=== PATIENT | male | born 1970 | race Caucasian/White ===

== ENCOUNTER 2020-02-15 07:18 | Emergency (ER) | payer SELFPAY ==
[2020-02-15 08:11] LABS: Absolute Lymphocytes (CBC) 1.9 K/uL (0.7-4.9); Basophils % 0.9 % (0-1.3); Hematocrit 44.8 % (39.6-49.0); MPV 7.8 fL (7.6-11.3); RBC Red Blood Cell Count 5.03 M/uL (4.33-5.43)
--- NOTE | 2020-02-15 08:12 | EDPHYS ---
Physician Documentation [facility] Name: Reji Mendoza Age: 49 yrs Sex: Male : 1970 Arrival Date: 02/15/2020 Time: 07:19 Bed 6 Private MD: Reyna Cash ED Physician Neal Miranda HPI: 02/14 07:53 This 49 yrs old Male presents to ER via Ambulatory with complaints of jeancarlos Numbness Of Arm, tingling of L leg. 07:53 The patient or guardian complains of decreased range of motion. jeancarlos 07:54 The patient's problem is reported as paresthesias, in left upper extremity, in left jeancarlos lower extremity, weakness, in the left upper extremity, in the left lower extremity. Onset: The symptoms/episode began/occurred 6.5 hour(s) ago. Duration: The episode is continuous. Context: the episode(s) was witnessed, by family. The symptoms are alleviated by nothing. The symptoms are aggravated by nothing. Associated signs and symptoms: The patient has no apparent associated signs or symptoms. Severity of symptoms: At their worst the symptoms were moderate in the emergency department the symptoms are unchanged. Patient's baseline: Neuro: alert and fully oriented. Historical: - Allergies: 07:48 PENICILLINS; hb 07:48 Bees; hb - Home Meds: 07:48 None [Active]; hb - PMHx: 07:48 None; hb - PSHx: 07:48 None; hb - Immunization history:: Adult Immunizations up to date. - Social history:: Smoking status: Patient reports the use of cigarette tobacco products, smokes one pack cigarettes per day. ROS: 07:56 Constitutional: Negative for fever, chills, and weight loss, Eyes: Negative for injury, jeancarlos pain, redness, and discharge, ENT: Negative for injury, pain, and discharge, Neck: Negative for injury, pain, and swelling, Cardiovascular: Negative for chest pain, palpitations, and edema, Respiratory: Negative for shortness of breath, cough, wheezing, and pleuritic chest pain, Abdomen/GI: Negative for abdominal pain, nausea, vomiting, diarrhea, and constipation, Back: Negative for injury and pain, : Negative for injury, bleeding, discharge, and swelling, Skin: Negative for injury, rash, and discoloration, Psych: Negative for depression, anxiety, suicide ideation, homicidal ideation, and hallucinations, Allergy/Immunology: Negative for hives, rash, and allergies, Endocrine: Negative for neck swelling, polydipsia, polyuria, polyphagia, and marked weight changes, Hematologic/Lymphatic: Negative for swollen nodes, abnormal bleeding, and unusual bruising. 07:56 MS/extremity: Positive for decreased range of motion, paresthesias, of the left arm and left leg. Exam: 07:56 Radiologist reports: neil arshad 07:56 Constitutional: This is a well developed, well nourished patient who is awake, alert, and in no acute distress. Head/Face: Normocephalic, atraumatic. Eyes: Pupils equal round and reactive to light, extra-ocular motions intact. Lids and lashes normal. Conjunctiva and sclera are non-icteric and not injected. Cornea within normal limits. Periorbital areas with no swelling, redness, or edema. ENT: Nares patent. No nasal discharge, no septal abnormalities noted. Tympanic membranes are normal and external auditory canals are clear. Oropharynx with no redness, swelling, or masses, exudates, or evidence of obstruction, uvula midline. Mucous membranes moist. Neck: Trachea midline, no thyromegaly or masses palpated, and no cervical lymphadenopathy. Supple, full range of motion without nuchal rigidity, or vertebral point tenderness. No Meningismus. Chest/axilla: Normal chest wall appearance and motion. Nontender with no deformity. No lesions are appreciated. Cardiovascular: Regular rate and rhythm with a normal S1 and S2. No gallops, murmurs, or rubs. Normal PMI, no JVD. No pulse deficits. Respiratory: Lungs have equal breath sounds bilaterally, clear to auscultation and percussion. No rales, rhonchi or wheezes noted. No increased work of breathing, no retractions or nasal flaring. Abdomen/GI: Soft, non-tender, with normal bowel sounds. No distension or tympany. No guarding or rebound. No evidence of tenderness throughout. Back: No spinal tenderness. No costovertebral tenderness. Full range of motion. Male : Normal genitalia with no discharge or lesions. Skin: Warm, dry with normal turgor. Normal color with no rashes, no lesions, and no evidence of cellulitis. Psych: Awake, alert, with orientation to person, place and time. Behavior, mood, and affect are within normal limits. 07:56 Musculoskeletal/extremity: Extremities: noted in the left arm and left leg: decreased ROM, ROM: limited active range of motion, in the left arm and left leg, Circulation is intact in all extremities. Pulses: noted to be 4+ in the bilateral radial, brachial, femoral, popliteal, posterior tibial and and dorsalis pedis arteries., Sensation intact. Compartment Syndrome exam of affected extremity: is normal. DVT Exam: No signs of deep vein thrombosis. no pain, no swelling, no tenderness, negative Homans' sign noted on exam, no appreciated bluish discoloration, no erythema, no increased warmth. 08:52 ECG was reviewed by the Attending Physician. [facility] Vital Signs: 07:27 BP 157 / 90; Pulse 88; Resp 16; Temp 97.8; Pulse Ox 99% ; Weight 80.74 kg; Height 5 ft. hb 11 in. (180.34 cm); Pain 0/10; 08:00 BP 140 / 88; Pulse 59; Resp 16 S; Pulse Ox 98% on R/A; jl7 08:30 BP 136 / 88; Pulse 57; Resp 16; Pulse Ox 100% ; 7 09:00 BP 134 / 87; Pulse 54; Resp 16; Pulse Ox 100% ; jl7 09:35 BP 139 / 94; Pulse 60; Resp 17; Pulse Ox 100% ; 7 10:00 BP 130 / 85; Pulse 56; Resp 16; Pulse Ox 100% ; 7 07:27 Body Mass Index 24.83 (80.74 kg, 180.34 cm) NIH Stroke Scale Scores: 08:00 NIHSS Score: 11 jl7 08:07 NIHSS Score: 6 jeancarlos MDM: 07:26 Patient medically screened. [facility] 07:59 Data reviewed: vital signs, nurses notes, lab test result(s), EKG, radiologic studies, [facility] CT scan, plain films. 08:03 Differential diagnosis: CVA, TIA, paralysis. 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 Test interpretation: by ED physician or midlevel provider: ECG, plain radiologic studies. Counseling: I had a detailed discussion with the patient and/or guardian regarding: the historical points, exam findings, and any diagnostic results supporting the discharge/admit diagnosis, lab results, radiology results, the need to transfer to another facility, for higher level of care, [facility] does not immediately have the required specialist, no mri. ED course: dr church at [facility]. 08:52 Response to treatment: the patient's symptoms have markedly improved after treatment. [facility] 02/14 07:40 Order name: Basic Metabolic Panel [facility] 02/14 07:40 Order name: CBC with Diff [facility] 02/14 07:40 Order name: LFT's [facility] 02/14 07:40 Order name: Magnesium [facility] 02/14 07:40 Order name: NT PRO-BNP [facility] 02/14 07:40 Order name: PT-INR [facility] 02/14 07:40 Order name: CT Stroke Brain w/o Contrast [facility] 02/14 07:40 Order name: Troponin (emerg Dept Use Only) [facility] 02/14 07:40 Order name: XRAY Chest (1 view) [facility] 02/14 07:40 Order name: Sed Rate [facility] 02/14 07:40 Order name: CRP [facility] 02/14 07:52 Order name: CT Head Angio [facility] 02/14 07:55 Order name: Neck Angio EDUT 02/14 10:10 Order name: Urine Dipstick--Ancillary (enter results) tt3 02/14 07:40 Order name: EKG; Complete Time: 07:42 [facility] 02/14 07:40 Order name: Cardiac monitoring; Complete Time: 08:54 [facility] 02/14 07:40 Order name: EKG - Nurse/Tech; Complete Time: 08:54 [facility] 02/14 07:40 Order name: IV Saline Lock; Complete Time: 08:04 [facility] 02/14 07:40 Order name: Labs collected and sent; Complete Time: 08:04 [facility] 02/14 07:40 Order name: O2 Per Protocol; Complete Time: 08:04 [facility] 02/14 07:40 Order name: O2 Sat Monitoring; Complete Time: 08:04 [facility] EC:52 Rate is 58 beats/min. Rhythm is regular. QRS [place] is Normal. SD interval is normal. QRS jeancarlos interval is normal. QT interval is normal. No Q waves. T waves are Normal. No ST changes noted. Clinical impression: Sinus bradycardia. Interpreted by me. Reviewed by me. Administered Medications: 08:12 Drug: foLIC Acid 1 mg Route: IVPB; Site: right antecubital; jl7 08:13 Follow up: Response: No adverse reaction; IV Status: Completed infusion 08:13 Drug: Aspirin Chewable Tablet 324 mg Route: PO; 09:37 Follow up: Response: No adverse reaction 08:45 Drug: NS 0.9% 1000 ml Route: IV; Rate: 1 bolus; Site: right forearm; 09:38 Follow up: Response: No adverse reaction; IV Status: Completed infusion; IV Intake: jl7 1000ml Point of Care Testing: Blood Glucose: 07:42 Blood Glucose: 104 mg/dL; hb Ranges: Critical Glucose Levels:Adult <50 mg/dl or >400 mg/dl <40 mg/dl or >180 mg/dl Disposition: 02/15/20 08:11 Transfer ordered to [facility]. Diagnosis is Cerebral infarction - left arm and leg weakness. - Reason for transfer: Higher level of care. - Accepting physician is to dr ranjit salinas. - Condition is Fair. - Problem is new. - Symptoms have improved. NIH Stroke Scale - NIH Stroke Score Date: 02/15/2020 Time: 08:00 Total Score = 11 1a. Level of Consciousness (LOC) - 0(Alert) 1b. Level of Consciousness (LOC) (Year \T\ Age) - 0(Both) 1c. LOC Commands (Open \T\ Closes Eyes/Receiving Specialist) - 0(Both) 2. Best Gaze (Lateral Gaze Paresis) - 0(Normal) 3. Visual Field Loss - 0(No visual loss) 4. Facial Palsy - 0(Normal) 5a. Left Arm: Motor (10-second hold) - 4(No movement) 5b. Right Arm: Motor (10-second hold) - 0(No drift) 6a. Left Leg: Motor (5-second hold - always test supine) - 4(No movement) 6b. Right Leg: Motor (5-second hold - always test supine) - 0(No drift) 7. Limb Ataxia (finger/nose \T\ heel/wright - test with eyes open) - 2(Present in two limbs) 8. Sensory Loss (pinprick arms/legs/face) - 1(Mild to moderate loss) 9. Best Language: Aphasia (description/naming/reading) - 0(No aphasia) 10. Dysarthria (speech clarity - read or repeat words) - 0(Normal) 11. Extinction and Inattention (visual/tactile/auditory/spatial/personal) - 0(No abnormality) Initials: gasper NIH Stroke Scale - NIH Stroke Score Date: 02/15/2020 Time: 08:07 Total Score = 6 1a. Level of Consciousness (LOC) - 0(Alert) 1b. Level of Consciousness (LOC) (Year \T\ Age) - 0(Both) 1c. LOC Commands (Open \T\ Closes Eyes/Receiving Specialist) - 0(Both) 2. Best Gaze (Lateral Gaze Paresis) - 0(Normal) 3. Visual Field Loss - 0(No visual loss) 4. Facial Palsy - 0(Normal) 5a. Left Arm: Motor (10-second hold) - 2(Drift, some effort against gravity) 5b. Right Arm: Motor (10-second hold) - 0(No drift) 6a. Left Leg: Motor (5-second hold - always test supine) - 2(Drift, some effort against gravity) 6b. Right Leg: Motor (5-second hold - always test supine) - 0(No drift) 7. Limb Ataxia (finger/nose \T\ heel/wright - test with eyes open) - 2(Present in two limbs) 8. Sensory Loss (pinprick arms/legs/face) - 0(Normal) 9. Best Language: Aphasia (description/naming/reading) - 0(No aphasia) 10. Dysarthria (speech clarity - read or repeat words) - 0(Normal) 11. Extinction and Inattention (visual/tactile/auditory/spatial/personal) - 0(No abnormality) Initials: jeancarlos Signatures: Dispatcher [employer] EDNeal Light MD MD cha Baxter, Heather, RN RN Sina Cruz RN RN jl7 Jung Mendoza 3 Corrections: (The following items were deleted from the chart) 10:36 08:11 02/15/2020 08:11 Transfer ordered to [facility]. Diagnosis is Cerebral infarction - left arm and leg weakness. Reason for transfer: Higher level of care. Accepting physician is to dr ranjit salinas. Condition is Fair. Problem is new. Symptoms have improved. jeancarlos
--- NOTE | 2020-02-15 08:12 | ER ---
Nurse's Notes [facility] Name: Reji Mendoza Age: 49 yrs Sex: Male : 1970 Arrival Date: 02/15/2020 Time: 07:19 Bed 6 Private MD: Reyna Cash Diagnosis: Cerebral infarction-left arm and leg weakness Presentation: 02/14 07:27 Chief complaint: Left arm and leg numbness and tingling that started at 0130 today. hb 07:27 Coronavirus screen: Proceed with normal triage. Ebola Screen: No symptoms or risks hb identified at this time. Initial Sepsis Screen: Does the patient meet any 2 criteria? No. Patient's initial sepsis screen is negative. Does the patient have a suspected source of infection? No. Patient's initial sepsis screen is negative. Risk Assessment: Do you want to hurt yourself or someone else? Patient reports no desire to harm self or others. Onset of symptoms was February 15, 2020 at 01:30. 07:27 Method Of Arrival: Ambulatory hb 07:27 Acuity: BRIAN 2 hb Historical: - Allergies: 07:48 PENICILLINS; hb 07:48 Bees; hb - Home Meds: 07:48 None [Active]; hb - PMHx: 07:48 None; hb - PSHx: 07:48 None; hb - Immunization history:: Adult Immunizations up to date. - Social history:: Smoking status: Patient reports the use of cigarette tobacco products, smokes one pack cigarettes per day. Screenin:00 The patient has not been NPO before screening. The patient is currently on the jl7 following diet: Regular The patient is alert, able to follow commands. The patient does not exhibit slurred or garbled speech The patient is not exhibiting difficulty speaking. The patient does not exhibit difficulty understanding words. The patient is able to swallow own secretions with no drooling or need for suction. Patient tolerated one teaspoon of water. No drooling, immediate coughing, gurgling, or clearing of the throat was noted. The patient tolerated 90mL of water. No drooling, immediate coughing, gurgling, or clearing of the throat was noted. The patient passed the bedside swallow screening. Oral medications may be given as ordered. Contact Physician for further diet orders. Provider notified of bedside swallow screening results: Neal Ruben MD. 08:02 Abuse screen: Denies threats or abuse. Denies injuries from another. Nutritional jl7 screening: No deficits noted. Tuberculosis screening: No symptoms or risk factors identified. Fall Risk No fall in past 12 months (0 pts). No secondary diagnosis (0 pts). IV access (20 points). Ambulatory Aid- None/Bed Rest/Nurse Assist (0 pts). Gait- Weak (10 pts.). Mental Status- Oriented to own ability (0 pts). Total Barrera Fall Scale indicates Low Risk Score (25-44 pts). Fall prevention measures have been instituted. Side Rails Up X 2 Placed close to Nursing Station Frequent Obs/Assesments occuring As available Patient and Family Educated on Fall Prevention Program and strategies. Assessment: 07:27 Reassessment: CODE STROKE CALLED, PT TO CT VIA WHEELCHAIR. hb 07:35 General: Appears in no apparent distress. uncomfortable, Behavior is cooperative, jl7 anxious, crying. Pain: Denies pain. Neuro: Level of Consciousness is awake, alert, obeys commands, Oriented to person, place, time, situation, Property Adjuster are weak on left Weakness in left leg(s) Speech is normal, Facial symmetry appears normal. Cardiovascular: Patient's skin is warm and dry. Respiratory: Airway is patent Respiratory effort is even, unlabored, Respiratory pattern is regular, symmetrical. Derm: Skin is pink, warm \T\ dry. 08:45 Reassessment: Patient appears in no apparent distress at this time. Patient and/or jl7 family updated on plan of care and expected duration. Pain level reassessed. Patient is alert, oriented x 3, equal unlabored respirations, skin warm/dry/pink. pt able to move left hand and left leg, ERP notified Patient states symptoms have improved. 10:15 Reassessment: [facility] at bedside to transport pt. [facility] 10:35 Reassessment: Spoke to pt's , updated on results, POC and transfer. [facility] Vital Signs: 07:27 BP 157 / 90; Pulse 88; Resp 16; Temp 97.8; Pulse Ox 99% ; Weight 80.74 kg; Height 5 ft. hb 11 in. (180.34 cm); Pain 0/10; 08:00 BP 140 / 88; Pulse 59; Resp 16 S; Pulse Ox 98% on R/A; jl7 08:30 BP 136 / 88; Pulse 57; Resp 16; Pulse Ox 100% ; jl7 09:00 BP 134 / 87; Pulse 54; Resp 16; Pulse Ox 100% ; jl7 09:35 BP 139 / 94; Pulse 60; Resp 17; Pulse Ox 100% ; jl7 10:00 BP 130 / 85; Pulse 56; Resp 16; Pulse Ox 100% ; jl7 07:27 Body Mass Index 24.83 (80.74 kg, 180.34 cm) hb NIH Stroke Scale Scores: 08:00 NIHSS Score: 11 jl7 08:07 NIHSS Score: 6 [facility] ED Course: 07:19 Patient arrived in ED. am2 07:20 Reyna Cash is Private Physician. am2 07:20 Neal Miranda MD is Attending Physician. jeancarlos 07:47 Triage completed. hb 07:48 Arm band placed on. hb 07:51 CT Stroke Brain w/o Contrast In Process Unspecified. EDMS 08:00 Patient has correct armband on for positive identification. Placed in gown. Bed in low jl7 position. Call light in reach. Side rails up X2. school bus monitor on. Pulse ox on. NIBP on. Warm blanket given. 08:01 Sina Solano, JULIUS is Primary Nurse. jl7 08:01 Initial lab(s) drawn, by hi, sent to lab. Inserted saline lock: 18 gauge in right jl7 antecubital area, using aseptic technique. Blood collected. Inserted saline lock: 20 gauge in left forearm, using aseptic technique. 08:[address] Miranda with Alberto at [facility] transfer [place]. tt3 08:06 XRAY Chest (1 view) In Process Unspecified. EDMS 08:[address] Odonnell the neurologist neon sign worker for [facility] with Dr. Miranda for tt3 patient transfer consultation. 08:27 CT Head Angio In Process Unspecified. EDMS 08:27 Neck Angio In Process Unspecified. EDMS 08:28 CT completed. Patient tolerated procedure well. Patient moved back from CT. bq 08:54 EKG done, by ED staff, reviewed by Neal Miranda MD. mh5 08:[address] Odonnell that patient GARNER is negative. tt3 09:04 Dr. Miranda connected with Dr. Dennis, hospitalist neon sign worker for [facility]. tt3 09:11 Administrative approval given by Alberto Quintanilla / patient has been accepted to [address] room 2214 / Dr. Dennis has acccepted the patient in transfer / report to be called [phone]. 10:38 No provider procedures requiring assistance completed. Patient transferred, IV remains jl7 in place. intact, No redness/swelling at site. Administered Medications: 08:12 Drug: foLIC Acid 1 mg Route: IVPB; Site: right antecubital; jl7 08:13 Follow up: Response: No adverse reaction; IV Status: Completed infusion jl7 08:13 Drug: Aspirin Chewable Tablet 324 mg Route: PO; jl7 09:37 Follow up: Response: No adverse reaction jl7 08:45 Drug: NS 0.9% 1000 ml Route: IV; Rate: 1 bolus; Site: right forearm; jl7 09:38 Follow up: Response: No adverse reaction; IV Status: Completed infusion; IV Intake: jl7 1000ml Point of Care Testing: Blood Glucose: 07:42 Blood Glucose: 104 mg/dL; hb Ranges: Intake: 09:38 IV: 1000ml; Total: 1000ml. jl7 Outcome: 08:11 ER care complete, transfer ordered by jeancarlos 10:36 Patient left the ED. tt3 10:38 Transferred by ground EMS to [facility], Transfer form completed. jl7 X-rays sent w/ patient. 10:38 Condition: stable 10:38 Discharge instructions given to patient, family, Instructed on the need for transfer, Demonstrated understanding of instructions. NIH Stroke Scale - NIH Stroke Score Date: 02/15/2020 Time: 08:00 Total Score = 11 1a. Level of Consciousness (LOC) - 0(Alert) 1b. Level of Consciousness (LOC) (Year \T\ Age) - 0(Both) 1c. LOC Commands (Open \T\ Closes Eyes/Men'S Leather Dress Belt Maker) - 0(Both) 2. Best Gaze (Lateral Gaze Paresis) - 0(Normal) 3. Visual Field Loss - 0(No visual loss) 4. Facial Palsy - 0(Normal) 5a. Left Arm: Motor (10-second hold) - 4(No movement) 5b. Right Arm: Motor (10-second hold) - 0(No drift) 6a. Left Leg: Motor (5-second hold - always test supine) - 4(No movement) 6b. Right Leg: Motor (5-second hold - always test supine) - 0(No drift) 7. Limb Ataxia (finger/nose \T\ heel/wright - test with eyes open) - 2(Present in two limbs) 8. Sensory Loss (pinprick arms/legs/face) - 1(Mild to moderate loss) 9. Best Language: Aphasia (description/naming/reading) - 0(No aphasia) 10. Dysarthria (speech clarity - read or repeat words) - 0(Normal) 11. Extinction and Inattention (visual/tactile/auditory/spatial/personal) - 0(No abnormality) Initials: jl7 NIH Stroke Scale - NIH Stroke Score Date: 02/15/2020 Time: 08:07 Total Score = 6 1a. Level of Consciousness (LOC) - 0(Alert) 1b. Level of Consciousness (LOC) (Year \T\ Age) - 0(Both) 1c. LOC Commands (Open \T\ Closes Eyes/Men'S Leather Dress Belt Maker) - 0(Both) 2. Best Gaze (Lateral Gaze Paresis) - 0(Normal) 3. Visual Field Loss - 0(No visual loss) 4. Facial Palsy - 0(Normal) 5a. Left Arm: Motor (10-second hold) - 2(Drift, some effort against gravity) 5b. Right Arm: Motor (10-second hold) - 0(No drift) 6a. Left Leg: Motor (5-second hold - always test supine) - 2(Drift, some effort against gravity) 6b. Right Leg: Motor (5-second hold - always test supine) - 0(No drift) 7. Limb Ataxia (finger/nose \T\ heel/wright - test with eyes open) - 2(Present in two limbs) 8. Sensory Loss (pinprick arms/legs/face) - 0(Normal) 9. Best Language: Aphasia (description/naming/reading) - 0(No aphasia) 10. Dysarthria (speech clarity - read or repeat words) - 0(Normal) 11. Extinction and Inattention (visual/tactile/auditory/spatial/personal) - 0(No abnormality) Initials: jeancarlos Signatures: Dispatcher [employer] Neal Martinez MD MD cha Quilty, Betty bq Baxter, Heather, RN RN Myranda Cristina 5 Sina Solano RN RN jl7 Catina Canales 2 Jung Mendoza 3
[2020-02-15] MEDS ORDERED: NA CHLORIDE 0.9% 1,000 ML ONE (08:13)
[2020-02-15] MEDS ORDERED: ASPIRIN 81 MG CHEWABLE TABLET ONE (08:13)
[2020-02-15 08:14] LABS: Protime INR 1.06
[2020-02-15] MEDS ORDERED: FOLIC ACID 5 MG/ML VIAL ONE (08:15)
[2020-02-15 08:25] LABS: ALT/SGPT 14 U/L (12-78); AST/SGOT 11 U/L (15-37); Albumin 3.6 g/dL (3.4-5.0); Alkaline Phosphatase 60 U/L (45-117); BUN Blood Urea Nitrogen 10 mg/dL (7-18); Bicarbonate 28 mmol/L (21-32); Bilirubin Direct 0.1 mg/dL (0-0.2); Bilirubin Total 0.3 mg/dL (0.2-1.0); Glucose Level 107 mg/dL (74-106); NT PRO-BNP 59 pg/mL (<125); Potassium 4.1 mmol/L (3.5-5.1); Sodium Level 138 mmol/L (136-145); Troponin (Emerg Dept Use Only) < 0.02 ng/mL (0.0-0.045)
[2020-02-15 08:26] LABS: C-Reactive Protein < 2.90 mg/L (<3.00)
--- NOTE | 2020-02-15 08:45 | RAD REPORT ---
EXAM DESCRIPTION: CT - Head angio - 02/15/2020 8:27 am CLINICAL HISTORY: HEMIPLEGIA Headache, drowsiness, CVA symptomology COMPARISON: <Comparisons> TECHNIQUE: CT angiography of the head was performed with MIPs. All CT scans are performed using dose optimization technique as appropriate and may include automated exposure control or mA/KV adjustment according to patient size. FINDINGS: No evidence of aneurysm is detected. No flow-limiting stenosis or vascular malformation id entified. Antegrade flow is seen in the vertebral arteries. The vertebral arteries are codominant. The visualized dural venous sinuses are patent. IMPRESSION: No significant flow abnormality is detected.
--- NOTE | 2020-02-15 08:46 | RAD REPORT ---
EXAM DESCRIPTION: CT - Neck Angio - 02/15/2020 8:28 am CLINICAL HISTORY: acute stroke Headache, drowsiness, CVA symptomology COMPARISON: Head angio dated 02/15/2020 TECHNIQUE: CT angiography of the neck vessels was performed with MIPs. All CT scans are performed using dose optimization technique as appropriate and may include automated exposure control or mA/KV adjustment according to patient size. FINDINGS: A left aortic arch is identified with normal three vessel configuration of the great vesse ls. No significant flow abnormality is seen of the common carotid bilaterally. No significant stenosis is identified involving the cervical segments of both internal carotid arteri es. Normal flow is seen within both vertebral arteries. Upper lung serrano are emphysematous with ill-defined scarring in both lung apices IMPRESSION: No significant flow abnormality of the neck vessels is identified.
--- NOTE | 2020-02-15 08:47 | RAD REPORT ---
EXAM DESCRIPTION: CT - Ct Stroke Brain Wo Cont - 02/15/2020 7:51 am CLINICAL HISTORY: Numbness;Weakness Headache, drowsiness, CVA symptomology COMPARISON: HEAD BRAIN W O CONTRAST dated 06/18/2014 TECHNIQUE: All CT scans are performed using dose optimization technique as appropriate and may inclu de automated exposure control or mA/KV adjustment according to patient size. FINDINGS: No intracranial hemorrhage, hydrocephalus or extra-axial fluid collection.No areas of brai n edema or evidence of midline shift. The paranasal sinuses and mastoids are clear. The calvarium is intact. IMPRESSION: No acute intracranial abnormality. If there is continued clinical concern for CVA, MR i maging of the brain would be recommended. The findings were discussed with Darrell Jarrell in the ER on 02/15/2020 at 7:47 a.m. by telephone.
[2020-02-15 10:22] LABS: Urine Blood NEGATIVE (NEG); Urine Glucose NEGATIVE (NEG); Urine Protein NEGATIVE (NEG)
[2020-02-15 10:57] VITALS: TEMP 97.8
[2020-02-15 11:03] VITALS: BP 139/94; O2SAT 100
--- NOTE | 2020-02-15 11:12 | RAD REPORT ---
EXAM DESCRIPTION: RAD - Chest Single View - 02/15/2020 8:06 am CLINICAL HISTORY: COUGH Chest pain. COMPARISON: No comparisons FINDINGS: Portable technique limits examination quality. The lungs are grossly clear. The heart is normal in size. No displaced fractures. IMPRESSION: No acute intrathoracic process suspected.
--- NOTE | 2020-02-16 18:48 | EKG ---
Test Date: 2020-02-15 Test Time: 08:46:08 [employer]: DARRYN MEASUREMENT RESULTS: Intervals: Rate: 58 NV: 226 QRSD: 86 QT: 366 QTc: 359 [place]: P: 75 NV: 226 QRS: 85 T: 74 INTERPRETIVE STATEMENTS: Sinus bradycardia with 1st degree AV block Otherwise normal ECG Compared to ECG 06/18/2014 13:17:50 No significant changes Electronically Signed On 02-16-20 18:44:40 CDT by Wayne Lizama
== END 2020-02-15 10:36 | disposition short-term general hospital (02) ==
LOC: ER 07:18
DX: I63.9 Cerebral infarction, unspecified (principal); R29.711 NIHSS score 11; R53.1 Weakness; F17.210 Nicotine dependence, cigarettes, uncomplicated; Z88.0 Allergy status to penicillin; Z91.030 Bee allergy status
CPT/HCPCS: 36415; 70450; 70496; 70498; 71045; 80048; 80076; 81003; 82947; 83735; 83880; 84484; 85025; 85610; 85652; 86140; 93005; 96361; 96374; 99285; J7030; Q9967